=== PATIENT | female | born 1955 | race Caucasian/White ===

== ENCOUNTER 2017-07-08 10:01 | Emergency (ER) | payer MEDICAID, MEDICARE ==
[2017-07-08 10:09] VITALS: TEMP 98.3
[2017-07-08] MEDS ORDERED: ASPIRIN 81 MG CHEWABLE CTB PO STA (10:15)
[2017-07-08] MEDS ORDERED: SODIUM CHLORIDE 0.9% FLUSH 10 ML SOL IV PRN (10:15)
[2017-07-08] MEDS ORDERED: NITROGLYCERIN 0.4 MG TAB SL PRN (10:15)
[2017-07-08] MEDS ORDERED: NITROGLYCERIN 0.4 MG TAB SL ONE (10:16)
[2017-07-08] MEDS ORDERED: ASPIRIN 81 MG CHEWABLE CTB ONE (10:16)
[2017-07-08 10:29] LABS: BASOPHILS % (AUTO) 1 % (0-3); EOSINOPHILS % (AUTO) 2 % (0-9); HEMATOCRIT 41 % (35-47); MEAN CORPUSCULAR HGB CONC 35.6 gm/dl (32.0-36.0); MEAN CORPUSCULAR VOLUME 84 fL (81-99); NEUTROPHILS % (AUTO) 66.6 % (37-80)
[2017-07-08 10:58] LABS: CALCIUM 8.8 mg/dl (8.5-10.1); GLOM FILT RATE 69 mL/min (>60); POTASSIUM 4.5 mMol/L (3.5-5.1); SODIUM 134 mMol/L (136-145)
[2017-07-08 11:18] LABS: APPEARANCE,URINE Clear; BILIRUBIN,URINE NEGATIVE (NEGATIVE); COLOR,URINE Yellow; GLUCOSE, URINE (UA) 2+ (NEGATIVE); KETONES,URINE NEGATIVE (NEGATIVE); LEUKOCYTE ESTERASE ,URINE NEGATIVE (NEGATIVE); NITRATE,URINE NEGATIVE (NEGATIVE); OCCULT BLOOD,URINE NEGATIVE (NEG-TRACE); UROBILINOGEN,URINE 0.2 (0.2-1.0 EU)
[2017-07-08 11:46] LABS: RBC,URINE NEGATIVE (0-3AV/HPF); WBC,URINE 0-2 (0-5AV/HPF)
[2017-07-08] MEDS ORDERED: ALUMINUM/MAGNESIUM 30 ML SUS PO ONE (11:55)
[2017-07-08] MEDS ORDERED: ALUMINUM/MAGNESIUM 30 ML SUS ONE (11:55)
[2017-07-08] MEDS ORDERED: LIDOCAINE HCL 2% (VISCOUS) 20 ML SOL ONE (11:55)
[2017-07-08] MEDS ORDERED: LIDOCAINE HCL 2% (VISCOUS) 20 ML SOL MT ONE (11:55)
[2017-07-08] MEDS ORDERED: APAP/HYDROCODONE 325/5 TAB PO ONE (12:18)
[2017-07-08] MEDS ORDERED: APAP/HYDROCODONE 325/5 TAB ONE (12:19)
[2017-07-08 12:47] VITALS: BP 153/80; PULSE 74; RESP 18; O2SAT 97
== END 2017-07-08 12:40 | disposition home or self-care (01) | DRG 392 ==
LOC: ED 10:01
DX: K21.9 Gastro-esophageal reflux disease without esophagitis (principal); E11.65 Type 2 diabetes mellitus with hyperglycemia; Z86.79 Personal history of other diseases of the circulatory system; Z95.1 Presence of aortocoronary bypass graft; Z79.4 Long term (current) use of insulin
CPT/HCPCS: 71010; 73502; 80048; 81001; 82009; 84484; 85025; 85610; 85730; 93005; 99285

== ENCOUNTER 2018-08-04 16:23 | Emergency (ER) | payer MEDICARE, OTHER ==
[2018-08-04 17:08] VITALS: RESP 18
[2018-08-04] MEDS: APAP/HYDROCODONE 1 EACH TABLET PO ONE ×2 (17:30→18:20)
[2018-08-04] MEDS ORDERED: CEFTRIAXONE 1 GM PDS IM ONE (17:31)
[2018-08-04] MEDS ORDERED: SODIUM CHLORIDE 0.9% 1000ML 1,000 ML IV SCH (17:45)
[2018-08-04] MEDS ORDERED: APAP/HYDROCODONE 1 EACH TABLET ONE (18:17)
[2018-08-04] MEDS ORDERED: CEFTRIAXONE 1 GM PDS ONE (18:19)
[2018-08-04 18:42] VITALS: O2SAT 98
[2018-08-04] MEDS ORDERED: METOPROLOL TARTRATE 50 MG TAB PO ONE (18:45)
[2018-08-04] MEDS ORDERED: METOPROLOL TARTRATE 25 MG TAB ONE (18:51)
[2018-08-04 19:13] VITALS: BP 199/104; PULSE 103; TEMP 98
== END 2018-08-04 19:05 | disposition home or self-care (01) | DRG 603 ==
LOC: ED 16:23
DX: L03.211 Cellulitis of face (principal); L02.01 Cutaneous abscess of face
CPT/HCPCS: 70486; 96372; 99283; 99284; J0696; A9270-GY